=== PATIENT | female | born 1950 | race Caucasian/White ===

== ENCOUNTER → 2017-01-26 | Day surgery (SDC) | payer MEDICARE, MEDICAID ==
[2017-01-26] VITALS (11 sets, daily range): BP systolic 121–187; BP diastolic 68–96
[~2017-01-26] VITALS: Ht 157.5 cm; Wt 74.4 kg
[~2017-01-26] MED LIST: BENZONATATE200 MG PO; CELEXA40 MG PO; CETIRIZINE HCL10 MG PO; GABAPENTIN 400400 MG PO; MECLIZINE HYDRO25 MG PO; OMEPRAZOLE40 MG PO; OXYGEN IH; SYMBICORT1 AE1 IH
[2017-01-26 09:50] LABS: AMPHETAMINES/METAMPHETAMINES NEGATIVE ng/mL (<1000)
--- NOTE | 2017-01-26 10:22 | Procedure Note ---
Procedure detail Date of procedure: 01/26/17 Anesthesiologist: Fernando Sapp M.D. Complications: None Pre-procedure diagnosis: Post laminectomy syndrome with lumbar radiculopathy symptoms and degenerative disc disease of lumbar spine Post-procedure diagnosis: Same Indications for procedure: This patient is a pleasant 66-year-old white female who has had multiple back surgeries with previous fusion. She has failed all conservative therapy including physical therapy, injections, narcotics and rhizotomy. She has also a failed surgery. She is not on any oral narcotics. Her urine drug screen has been appropriate. She presents for intrathecal pump trial today. She has had a successful neuropsychological evaluation. Procedure detail: Informed consent was obtained and the risk and benefits of the procedure was to the patient. Patient was taken to the procedure room. She was placed prone on the procedure table. She was prepped and draped in sterile fashion. C-arm fluoroscopy was used to view the lumbar spine. The skin and subcutaneous tissues were anesthetized using lidocaine. A 17-gauge spinal needle was inserted and advanced into the L4-L5 interspace until clear CSF was obtained. After this intrathecal catheter was inserted and advanced very easily to the T12 vertebral body. The needle was withdrawn The catheter was secured in place. We were able to freely which are clear CSF through the catheter. The patient tolerated the procedure well with no compensations. She was taken to recovery in stable condition. After 1 set of vitals, I gave a single bolus of intrathecal fentanyl 25 g over 3 minutes. The patient was assessed 30 minutes to 1 hour after the procedure. Patient's pain was decreased from a 10 out of 10 to a 6 out of 10. She was somewhat more functional. Given her residual pain we did decide to repeat her dose of fentanyl 25 g intrathecal over 3 minutes. The patient was reassessed 30 minutes to 1 hour after her second dose. She was assessed by physical therapy and there was improvement and she is at least 50 percent better pain llanos. She is much more functional and pain is 50 percent better. She wants to pursue permanent placement. Intrathecal catheter was removed and Band-Aid was placed. We will follow-up with her on 07 February. She will also see Dr. Limon more on that date. Plan and disposition: We will plan on permanent Placement of intrathecal pain pump. Catheter tip will be at T12 and we will plan on using Dilaudid 1 mg per mL to start at 0.1 mg per day. We will get her into physical therapy after permanent placement. at [id number]
== END ==
LOC: PM 08:38 → LAB 08:38 → PM 09:00
PROVIDERS: Anesthesiology
PROC: 3E0R3CZ (ICD-10-PCS; principal; 2017-01-26)
DX: M96.1 Postlaminectomy syndrome, not elsewhere classified (principal); M51.16 Intervertebral disc disorders with radiculopathy, lumbar region

== ENCOUNTER → 2017-02-20 | Outpatient (CLI) | payer MEDICARE, MEDICAID ==
[2017-02-20 13:23] LABS: HEMOGLOBIN 14.7 g/dL (12.2-16.2); LYMPH # 1.9 K/mm3 (0.7-4.5); LYMPH % 19.9 % (10-50.0)
[2017-02-20 19:11] LABS: BUN 11 mg/dL (7-18)
[2017-02-20 19:21] LABS: GFR (ESTIMATED) 56 ML/MIN (59-)
== END ==
LOC: LAB 13:08
PROVIDERS: Anesthesiology
DX: M51.36 Other intervertebral disc degeneration, lumbar region (principal); Z01.812 Encounter for preprocedural laboratory examination

== ENCOUNTER 2017-02-21 09:01 | Day surgery (SDC) | payer MEDICARE, MEDICAID ==
[~2017-02-21] VITALS: Ht 157.5 cm; Wt 74.4 kg
--- NOTE | 2017-02-21 15:13 | Operative Note ---
Surgeon/Diagnoses Surgeon/[employer]acher [employer]) Date of procedure: 02/21/17 Surgeon: Woo Laureano MD Diagnoses Pre-op diagnosis: Post laminectomy syndrome Post-op diagnosis Same Procedure Procedure Procedure: Removal and replacement of intrathecal pain pump generator Indications: Management of chronic back pain Findings: Noncontributory Procedure Description: Patient was placed prone on the operating table and her back and flank regions were prepped and draped in sterile fashion. Adequate local anesthesia was obtained was 1 percent Xylocaine with epinephrine paraspinal incision was made with Dr. tsai which an intrathecal cath was passed into the intrathecal space to the area desirable Dr. Sapp. Catheter fixed the parasternal fascia with fixation device and the 2-0 Prolene suture. RIGHT flank incision then made after local anesthesia which made a pocket for placement of the reservoir. Catheter passed from the paraspinal incision to the pocket incision utilizing a tunneling device. Catheter connected to the new generator and placed in the pocket. CSF was aspirated from the generator noting patency of the system. Subcu tenderness tissues closed with 2-0 Vicryl. Skin closure stitch of 4-0 nylon. Pockets irrigated with bacitracin solution prior to placement of the generator. She had about a point and sterile dressings applied to the wounds. The patient, tolerated the procedure well. Taken to the recovery room in stable condition EBL (ml): 5 Anesthesia: local Mac Implants: Generator and catheter Complications: None Specimens: None Disposition Disposition: Following recovery the patient will be discharged home and will follow-up in 2 weeks for suture removal. Wound care instructions given to the patient prior to discharge. We will be contacted sooner for redness pain and drainage nausea vomiting fever chills or worse rales. at [id number]
--- NOTE | 2017-02-21 15:14 | Operative Note ---
Surgeon/Diagnoses Surgeon/[employer](s) Date of procedure: 02/21/17 Surgeon: Fernando Sapp MD Diagnoses Pre-op diagnosis: Post laminectomy syndrome lumbar spine with lumbar radiculopathy symptoms and degenerative disc disease of lumbar spine Post-op diagnosis Same Procedure Procedure Procedure: Permanent placement intrathecal pain pump Indications: MARLY JENNINGS is a 66 year-old Female with a history of multiple back surgeries with previous fusion. She has failed all conservative therapy including physical therapy, injections, oral narcotics and rhizotomy. She is also failed previous surgery. She is currently not on any oral narcotics. She had a successful pump trial with 60 percent relief in her pain symptoms. She's also had a successful neuropsychological evaluation. She wants to proceed with permanent placement of intrathecal pump. I've explained the risks and benefits and answered all questions. Findings: None Procedure Description: Informed consent was obtained and the risk and benefits of the procedure was explained to the patient. The patient was taken to the operating room and placed prone on the procedure table. She did receive vancomycin preoperatively. She was prepped and draped in sterile fashion. C-arm fluoroscopy was used to view the lumbar spine. The skin and subcutaneous tissue adjacent to the L4-L5 interspace were anesthetized using lidocaine. I made an incision and dissected down to the lumbar paraspinous fashion. I placed a 14-gauge spinal needle and advanced into the L4-L5 interspace until clear CSF was obtained. After this intrathecal catheter was inserted and advanced very easily to the T12 vertebral body. The stylet of the catheter and needle were withdrawn. The catheter was secured to the lumbar paraspinous fascia with an anchoring device and 2-0 Prolene. I prepared the pump with 20 mL of intrathecal Dilaudid 1 mg per mL while Dr. Cano prepared the pump pocket. I told catheter from the back to the pump pocket and attached the catheter to the pump. The pump was placed in the pump pocket. We were able to freely withdraw clear CSF through the side port. Both incisions were then closed with 2-0 Vicryl followed by 4-0 nylon. The patient was placed in the abdominal binder taken to recovery in stable condition. The patient tolerated the procedure well with no complication. The pump was interrogated and started at 0.1 mg per day of intrathecal Dilaudid. EBL (ml): 5 Anesthesia: LMAC Implants: Intrathecal catheter and permanent Flowonix pain pump Complications: None Disposition Disposition: Plan and disposition: We will follow-up with this patient in 2 weeks. We will make adjustments to her pump at that time. The patient and the patient's family were counseled on side effects and signs and symptoms associated with oversedation. If the patient has any side effects or signs or symptoms of oversedation she has to go to the nearest emergency room. She is to also call us in the pain clinic. If she has any questions or problems she is to call us in the pain clinic. at [phone]
[2017-02-21 17:29] VITALS: BP 129/72
== END 2017-02-21 16:10 | disposition home or self-care (01) ==
LOC: SDC 09:01
PROC: 00HU03Z Insertion of Infusion Device into Spinal Canal, Open Approach (ICD-10-PCS; principal; 2017-02-21)
PROC: 0JH70VZ Insertion of Infusion Pump into Back Subcutaneous Tissue and Fascia, Open Approach (ICD-10-PCS; 2017-02-21)
DX: M51.16 Intervertebral disc disorders with radiculopathy, lumbar region (principal); M96.1 Postlaminectomy syndrome, not elsewhere classified